=== PATIENT | female | born 1945 | race Caucasian/White ===

== ENCOUNTER 2016-12-22 12:11 | Inpatient (IN) | payer MEDICARE, OTHER ==
[~2016-12-22] VITALS: Ht 160 cm; Wt 79.4 kg
--- NOTE | 2016-12-22 12:20 | NUR ---
PT UNABLE TO PROVIDE LIST OF MEDICATIONS AT THIS TIME.
--- NOTE | 2016-12-22 12:22 | NUR ---
Called Dr. Caal for medication list. Awaiting call back.
--- NOTE | 2016-12-22 12:36 | NUR ---
Per patient, she was "sweaty", with nausea, vomiting & diffused abdominal pains during the doctor's visit. Denies chest pains at this time, respiration is easy, skin warm & dry.
[2016-12-22 12:45] LABS: CARBON DIOXIDE 26 mmol/L (21-32); CHLORIDE 103 mmol/L (98-107); CREATININE 0.8 mg/dL (0.6-1.3); GLUCOSE 172 mg/dL (74-106); UREA NITROGEN, BLOOD 15 mg/dL (7-18)
[2016-12-22 12:46] LABS: BASOPHILS % (AUTO) 0.8 % (0.0-2.0); EOSINOPHILS # (AUTO) 0.2 K/uL (0.0-0.7); EOSINOPHILS % (AUTO) 4.3 % (0.0-7.0); HEMATOCRIT 37.9 % (37-47); HEMOGLOBIN 12.7 G/DL (12.0-16.0); LYMPHOCYTES % (AUTO) 25.2 % (20.5-51.5); MEAN CORPUSCULAR HEMOGLOBIN 30.6 UUG (27.0-31.0); MEAN CORPUSCULAR HGB CONC 34 g/dL (32.0-37.0); MEAN CORPUSCULAR VOLUME 91.2 FL (81.0-99.0); MONOCYTES # (AUTO) 0.2 K/UL (0.1-1.30); MONOCYTES % (AUTO) 5.3 % (0.0-11.0); NEUTROPHILS # (AUTO) 2.6 K/UL (1.8-8.9); NEUTROPHILS % (AUTO) 64.4 % (38.5-71.5); PLATELET COUNT (AUTO) 166 K/UL (150-450); RED BLOOD CELL COUNT(AUTO) 4.15 MIL/UL (4.2-5.4)
[2016-12-22 12:51] LABS: ALANINE AMINOTRANSFERASE 22 U/L (14-59); ALKALINE PHOSPHATASE 57 U/L (50-136); ASPARTATE AMINOTRANSFERASE 20 U/L (15-37); BILIRUBIN,TOTAL 0.7 mg/dL (0.2-1.0); CREATINE KINASE, TOTAL 240 U/L (26-192); MAGNESIUM 1.9 mg/dL (1.8-2.4); TOTAL PROTEIN, SERUM 7.1 g/dL (6.4-8.2)
[2016-12-22 13:14] LABS: THYROID STIMULATING HORMONE 1.773 mIU/mL (0.358-3.740)
--- NOTE | 2016-12-22 13:31 | NUR ---
Pt resting on a gurney, no c/o at this time, vss, nad noted, cont to monitor, awaiting for results.
--- NOTE | 2016-12-22 14:03 | NUR ---
Patient is resting comfortably on gurney while using her cellphone, NAD
--- NOTE | 2016-12-22 14:11 | NUR ---
Patient is ready for transfer, pending admitting papers from ER registration staff at this time.
--- NOTE | 2016-12-22 15:00 | NUR ---
received from ER per matt awake alert and oriented, speaks Beninese but understands Turkmen, states was in MD's office for check up and felt abdominal pain, nausea and became diaphoretic, daughter states her heart rate was in the 40's. Denies of any chest pain and shortness of breath at this time, no nausea, tele applied and SR 60's, denies of dizziness, routine admission care done, oriented to bed controls and call button, fall risks initiated. Daughter at bedside, assessment done
[2016-12-22 15:30] VITALS: BP 144/82
[2016-12-22 16:05] LABS: *BILIRUBIN,URIN NEGATIVE (NEGATIVE); *BLOOD, URINE NEGATIVE (NEGATIVE); *CLARITY,URINE CLEAR (CLEAR); *COLOR,URINE YELLOW (YELLOW); *KETONES,URINE NEGATIVE (NEGATIVE); *PROTEIN,URINE NEGATIVE (NEGATIVE); *UROBILINOGEN,URINE 0.2 E.U./dl (NORMAL); LEUKOCYTE ESTERASE ,URINE TRACE (NEGATIVE); NITRITE, URINE NEGATIVE (NEGATIVE); UGLUCOSE NEGATIVE (NEGATIVE)
--- NOTE | 2016-12-22 16:15 | NUR ---
placed a call to Dr Caal's office- to return call
[2016-12-22 16:24] LABS: MUCUS,URINE FEW /LPF (0-FEW); SQUAMOUS EPITHELIAL CELL,UR FEW /HPF (NONE SEEN)
[2016-12-22] MEDS ORDERED: ASCO125T PO (16:29)
[2016-12-22] MEDS ORDERED: ALEN70TA45 PO (16:29)
[2016-12-22] MEDS ORDERED: POTA10CA43 PO (16:29)
[2016-12-22] MEDS ORDERED: FLUO15CR2 TP (16:29)
[2016-12-22] MEDS ORDERED: COLE625T9 PO (16:29)
[2016-12-22] MEDS ORDERED: ESOM40CA PO (16:29)
[2016-12-22] MEDS ORDERED: SOFO1TAB PO (16:29)
[2016-12-22] MEDS ORDERED: FURO20TA4 PO (16:29)
[2016-12-22] MEDS ORDERED: TRAM50TA2 PO (16:29)
[2016-12-22] MEDS ORDERED: GLIM4TAB3 PO (16:29)
[2016-12-22] MEDS ORDERED: OMEG1CAP55 PO (16:29)
[2016-12-22] MEDS ORDERED: CELE200C PO (16:29)
[2016-12-22] MEDS ORDERED: ISOP1MED TP (16:29)
[2016-12-22] MEDS ORDERED: IBUP-1955 PO (16:29)
[2016-12-22] MEDS ORDERED: DULO60CA45 PO (16:29)
--- NOTE | 2016-12-22 16:45 | NUR ---
placed another call to Dr Caal- to return call
--- NOTE | 2016-12-22 17:10 | NUR ---
Dr Caal called with orders, pt remains on SR 64, denies of chest pain, no shortness of breath, no nausea, daughter at bedside
[2016-12-22] MEDS ORDERED: POLY17PO4 PO (17:40)
[2016-12-22] MEDS ORDERED: VITAMIN BCOMPLEX INJ (17:40)
[2016-12-22] MEDS ORDERED: hydrocortisone 2.5% TOP (17:40)
[2016-12-22] MEDS ORDERED: DEXTROSE 50% 50 ML DISP.SYRIN IV PRN (17:45)
[2016-12-22] MEDS ORDERED: INSULIN REGULAR, HUMAN 300 UNIT/3 ML VIAL SQ PRN (17:45)
[2016-12-22] MEDS ORDERED: ONDANSETRON 4 MG/2 ML VIAL IV PRN (17:45)
[2016-12-22] MEDS ORDERED: ZOLPIDEM 5 MG TABLET PO PRN (17:45)
[2016-12-22] MEDS ORDERED: ACETAMINOPHEN 325 MG TABLET PO PRN (17:45)
[2016-12-22] MEDS: IV NS 1000 ML 1,000 ML IV PRN (18:19)
[2016-12-22] MEDS ORDERED: MIRALAX 17 GM POWD.PACK PO PRN (18:30)
[2016-12-22] MEDS ORDERED: HYDROCORTISONE 2.5% CREAM 20 GM TUBE TOP SCH (18:30)
[2016-12-22] MEDS ORDERED: TRAMADOL HCL 50 MG TABLET PO PRN (18:30)
--- NOTE | 2016-12-22 18:31 | NUR ---
resting in bed, ate dinner with fair appetite, tele remains SR 60's, all needs attended and met, safety measures maintained, IVF NS at 50ml/hr started
[2016-12-22 19:00] VITALS: BP 130/61
[2016-12-22] MEDS: VELPATASVIR PO SCH (19:00)
[2016-12-22] MEDS ORDERED: EPCLUSA PO SCH (19:00)
[2016-12-22] MEDS: SOFOSBUVIR PO SCH (19:00)
--- NOTE | 2016-12-22 19:45 | NUR ---
NSG: PT RECEIVED AWAKE, ALERT, RESTING IN BED COMFORTABLY. DENIES DISCOMFORT AT THIS TIME. TELE, SR. ON CONT IVF. FAMILY AT THE BEDSIDE. PT BROUGHT MEDICATION FOR HEP C, EPCLUSA, HOWEVER, PT DOES NOT WANT US TO BRING TO PHARMACY. EXPLAINED TO PT THAT SHE CANT HAVE MED AT THE BEDSIDE. WILL CALL PHARMACY TO TALK TO PT.
--- NOTE | 2016-12-22 20:15 | NUR ---
nsg: PHARMACIST, [facility], CAME UP AND TALKED TO PT REGARDING MED SAFETY. PT AGREED TO GIVE OWN MED TO PHARMACIST TO BE DISPENSED.
--- NOTE | 2016-12-22 20:34 | NUR ---
NSG: pt took own med for hep c, epclusa, 1 tab at 1900. pharmacist, johanna is also made aware.
[2016-12-22] MEDS: BLOOD SUGAR DIAGNOSTIC 1 EACH STRIP VI SCH (21:18)
[2016-12-22 23:52] VITALS: BP 127/62
[2016-12-23 04:00] VITALS: BP 130/60
--- NOTE | 2016-12-23 05:43 | NUR ---
nsg: no acute distress noted. denies chest pain or any discomfort. v/s stable. tele, SR with hr 60's. cont to monitor.
[2016-12-23 06:35] LABS: BASOPHILS # (AUTO) 0.1 K/uL (0.0-8.0); BASOPHILS % (AUTO) 1.4 % (0.0-2.0); EOSINOPHILS # (AUTO) 0.3 K/uL (0.0-0.7); EOSINOPHILS % (AUTO) 5.2 % (0.0-7.0); HEMATOCRIT 37.4 % (37-47); HEMOGLOBIN 12.8 G/DL (12.0-16.0); LYMPHOCYTES # (AUTO) 1.7 K/UL (0.8-4.8); LYMPHOCYTES % (AUTO) 33.1 % (20.5-51.5); MEAN CORPUSCULAR HGB CONC 34 g/dL (32.0-37.0); MEAN CORPUSCULAR VOLUME 90.6 FL (81.0-99.0); MONOCYTES # (AUTO) 0.3 K/UL (0.1-1.30); MONOCYTES % (AUTO) 6.4 % (0.0-11.0); NEUTROPHILS # (AUTO) 2.7 K/UL (1.8-8.9); NEUTROPHILS % (AUTO) 53.9 % (38.5-71.5); PLATELET COUNT (AUTO) 159 K/UL (150-450); RED BLOOD CELL COUNT(AUTO) 4.13 MIL/UL (4.2-5.4); WHITE BLOOD COUNT (AUTO) 5.1 K/UL (4.0-11.2)
[2016-12-23] MEDS: PANTOPRAZOLE SODIUM 40 MG TABLET.DR PO SCH (06:37)
[2016-12-23] MEDS: BLOOD SUGAR DIAGNOSTIC 1 EACH STRIP VI SCH (06:40)
[2016-12-23 06:57] LABS: CARBON DIOXIDE 27 mmol/L (21-32); CHLORIDE 107 mmol/L (98-107)
[2016-12-23 07:14] LABS: THYROID STIMULATING HORMONE 0.708 mIU/mL (0.358-3.740)
[2016-12-23 07:28] LABS: ALKALINE PHOSPHATASE 54 U/L (50-136); BILIRUBIN,TOTAL 0.7 mg/dL (0.1-1.0); CREATININE 0.8 mg/dL (0.6-1.3); GLUCOSE 109 mg/dL (74-106); UREA NITROGEN, BLOOD 15 mg/dL (7-20)
[2016-12-23 07:29] LABS: ALANINE AMINOTRANSFERASE 22 U/L (14-59); ASPARTATE AMINOTRANSFERASE 18 U/L (15-37); CHOLESTEROL 173 mg/dL (<200); HDL CHOLESTEROL 64 mg/dL (40-60); TOTAL PROTEIN, SERUM 6.5 g/dL (6.4-8.2); TRIGLYCERIDES 74 MG/DL (30-150)
--- NOTE | 2016-12-23 07:30 | NUR ---
RESTING COMFORTABLY IN BED NO SIGNS OF PAIN OR DISTRESS WITH RA SATURATING 100%, SR ON MONOTR NO ECTOPIES. ASSISTED WITH MORNING CARE SAT ON CHAIR FOR BREAKFAST REQUIRES ONLY STANDBY ASSIST IN ALL AREAS. CLOSELY MONITORED
--- NOTE | 2016-12-23 07:51 | NUR ---
PATIENT REFUSED SLIDING SCALE INSULIN WITH BS 135 "MY SUGAR IS LOW I DONT NEED INSULIN"
[2016-12-23] MEDS: POTASSIUM CHLORIDE 10 MEQ CAPSULE.SA PO SCH (08:35)
[2016-12-23] MEDS: ASCORBIC ACID 500 MG TABLET PO SCH (08:35)
[2016-12-23] MEDS: OMEGA-3 FATTY ACIDS/FISH OIL CAPSULE PO SCH ×2 (08:35→17:44)
[2016-12-23] MEDS: GLIMEPIRIDE 4 MG TABLET PO SCH (08:35)
[2016-12-23] MEDS ORDERED: COLESEVELAM HCL 625 MG TABLET PO SCH (09:00)
[2016-12-23] MEDS ORDERED: FLUOCINONIDE 0.05% CREAM 30 GM TUBE TP SCH (09:00)
[2016-12-23] MEDS ORDERED: VIT B COMPLEX IM SCH (09:00)
--- NOTE | 2016-12-23 09:30 | NUR ---
DR ROOT IN AND WROTE ORDER FOR EGD TOMORROW AT 2PM.
--- NOTE | 2016-12-23 11:24 | NUR ---
DR MARS SPOKE WITH PATIENT AND DAUGHTER REGARDING PLAN OF CARE SO WITH DR HAJI SEE NOTES
--- NOTE | 2016-12-23 11:27 | NUR ---
DAUGHTER SIGNED CONSENT FOR EGD BUT DISAGREE 2PM SCHEDULE. WILL NOTIFY DR ROOT
[2016-12-23 11:49] VITALS: BP 150/69
--- NOTE | 2016-12-23 14:00 | NUR ---
ECHO COMPLETED 65-70% EF
[2016-12-23 16:02] VITALS: BP 112/55
[2016-12-23] MEDS: IV NS 1000 ML 1,000 ML IV PRN (17:48)
[2016-12-23] MEDS: VELPATASVIR PO SCH (17:48)
[2016-12-23] MEDS: SOFOSBUVIR PO SCH (17:48)
--- NOTE | 2016-12-23 18:14 | NUR ---
AMBULATED AROUND THE HALLWAY NO SIGNS OF SOB OR DISTRESS REMAINS SR ON MONITOR. NPO POST MN INSTRUCTED FOR EGD AT 2PM TOMORROW
[2016-12-23 19:00] VITALS: BP 112/62
[2016-12-23 23:54] VITALS: BP 119/50
[2016-12-24 04:00] VITALS: BP 135/70
--- NOTE | 2016-12-24 05:48 | NUR ---
PT SLEPT INTERMITTENTLY. IN NO ACUTE SIGNS OF DISTRESS. PT NPO AFTER MIDNIGHT, WILL HAVE EGD TODAY @ 2PM. PT AWARE. IVF STILL INFUSING. DENIES PAIN. CALL LIGHT WITHIN REACH.
--- NOTE | 2016-12-24 05:51 | NUR ---
SR WITH PVC'S AND PAC'S ON [employer]. Addendum: 12/24/16 at 0619 by DELLA MCCARTHY RN SR ON TELE MONITOR.
[2016-12-24] MEDS: PANTOPRAZOLE SODIUM 40 MG TABLET.DR PO SCH (06:22)
[2016-12-24] MEDS: POTASSIUM CHLORIDE 10 MEQ CAPSULE.SA PO SCH (08:09)
[2016-12-24] MEDS: ASCORBIC ACID 500 MG TABLET PO SCH (08:09)
[2016-12-24] MEDS: GLIMEPIRIDE 4 MG TABLET PO SCH (08:09)
[2016-12-24] MEDS: OMEGA-3 FATTY ACIDS/FISH OIL CAPSULE PO SCH ×2 (08:09→17:42)
[2016-12-24] MEDS ORDERED: DULOXETINE 60 MG CAPSULE.DR PO SCH (09:00)
[2016-12-24 11:07] VITALS: BP 136/77
--- NOTE | 2016-12-24 16:45 | NUR ---
IVAN (DAUGHTER) CALLED REQUESTING TO TALK TO DR. MARS. CALLED DR. MARS AND PROVIIDED IVAN'S PHONE NUMBER "PLEASE CALL PER DAUGHTERS REQUEST, PER DAUGHTER "IT'S URGENT"
[2016-12-24] MEDS ORDERED: hydrALAZINE HCL 20 MG/1 ML VIAL ONE (17:00)
[2016-12-24 17:10] VITALS: BP 169/94
--- NOTE | 2016-12-24 17:15 | NUR ---
PT IS BACK FROM SURGERY, B/P IS INCREASED, PER PACU NURSE "HYDRALAZINE WAS GIVEN TO THE PT AND ALSO PT VOIDED". WILL CONTINUE TO MONITOR. WILL CALL DR. MARS.
[2016-12-24] MEDS ORDERED: KETAMINE HCL 500 MG/10 ML INJ ONE (17:18)
[2016-12-24 17:25] VITALS: BP 139/75
[2016-12-24 17:51] VITALS: BP 139/75
[2016-12-24] MEDS: VELPATASVIR PO SCH (18:05)
[2016-12-24] MEDS: SOFOSBUVIR PO SCH (18:05)
--- NOTE | 2016-12-24 18:47 | NUR ---
PT REQUESTED TO REMOVE IV AND STOP IV FLUIDS.
--- NOTE | 2016-12-24 19:00 | NUR ---
PT IS SITTING IN ROOM. NO S/S OF RESPIRATORY DISTRESS NOTED. NO PAIN NOTED. ALL SAFETY NEEDS ARE MET.
[2016-12-24] MEDS ORDERED: LIDOCAINE HCL 2% 20 ML VIAL MC ONE (19:09)
[2016-12-24] MEDS ORDERED: IV NORMAL SALINE 1000 ML BAG IV ONE (19:09)
[2016-12-24] MEDS ORDERED: PROPOFOL 200 MG/20 ML BOTTLE IV ONE (19:09)
--- NOTE | 2016-12-24 19:10 | NUR ---
nsg: d/c instructions given to patient. verbalized understanding. pt left on her own, will drive herself. offered to call sacha, daughter, and her son, pt refused to be picked up by them, said i have my car.
== END 2016-12-24 19:10 | disposition home or self-care (01) | DRG 311 ==
LOC: ER 12:11 → TELE 14:37 → MED 12-24 14:19
PROVIDERS: ADMIT Internal Medicine; ATTEND Internal Medicine
PROC: 0DJ08ZZ Inspection of Upper Intestinal Tract, Via Natural or Artificial Opening Endoscopic (ICD-10-PCS; principal; 2016-12-24 15:57)
DX: I24.9 Acute ischemic heart disease, unspecified (principal); B19.9 Unspecified viral hepatitis without hepatic coma; Z98.84 Bariatric surgery status; E11.40 Type 2 diabetes mellitus with diabetic neuropathy, unspecified; I10 Essential (primary) hypertension; M19.90 Unspecified osteoarthritis, unspecified site; B19.20 Unspecified viral hepatitis C without hepatic coma; Z90.710 Acquired absence of both cervix and uterus; Z88.8 Allergy status to other drugs, medicaments and biological substances; K74.60 Unspecified cirrhosis of liver; Z87.11 Personal history of peptic ulcer disease; H81.10 Benign paroxysmal vertigo, unspecified ear; I48.0 Paroxysmal atrial fibrillation; G89.29 Other chronic pain; E78.5 Hyperlipidemia, unspecified; F32.9 Major depressive disorder, single episode, unspecified; Z79.84 Long term (current) use of oral hypoglycemic drugs; K29.70 Gastritis, unspecified, without bleeding; K20.9 Esophagitis, unspecified; K44.9 Diaphragmatic hernia without obstruction or gangrene
CPT/HCPCS: 36415; 70030-TC; 83735; 84443; 85025; 85610; 93005; 93307; A4217; A4663; J0360; J1815; J3490; J7030